=== PATIENT | male | born 1955 | race Two or more races ===

== ENCOUNTER 2017-10-05 08:52 | Inpatient (IN) | payer OTHER ==
[2017-10-05 09:43] VITALS: BMI 27.3
--- NOTE | 2017-10-05 11:58 | HP ---
COWS - Scale Resting Pulse: 1= [place] 81-100 Sweatin= Chills/Flushing Restless Observation: 1= Difficult to Sit Still Pupil Size: 0= Normal to Room Light Bone or Joint Aches: 2= Severe Diffuse Aches Runny Nose/ Eye Tearin= Runny Nose/Eyes GI Upset > 30mins: 2= Nausea/Diarrhea Tremor Observation: 2= Slight Tremor Visible Yawning Observation: 1= 1-2x During Session Anxiety or Irritability: 2=Irritable/Anxious Goose Flesh Skin: 0=Smooth Skin COWS Score: 14 Admission ROS S - HPI Chief Complaint: "They told me at the ER at [facility] that I should come for detox." Patient is here to Detox from Alcohol and Heroin. Allergies/Adverse Reactions: Allergies Allergy/AdvReac Type Severity Reaction Status Date / Time No Known Allergies Allergy Verified 10/05/17 09:48 History of Present Illness: Pt. is a 61 YO male here to Detox from Alcohol and Heroin. This is pt.'s first Detox admission. Exam Limitations: No Limitations - Ebola screening Have you traveled outside of the country in the last 21 days: No (N) Have you had contact with anyone from an Ebola affected area: No Have you been sick,other than usual withdrawal symptoms: No Do you have a fever: No - Review of Systems Constitutional: Diaphoresis, Malaise, Changes in sleep EENT: reports: No Symptoms Reported Respiratory: reports: No Symptoms reported Cardiac: reports: No Symptoms Reported GI: reports: Diarrhea, Nausea, Abdominal cramping : reports: No Symptoms Reported Musculoskeletal: reports: Back Pain Integumentary: reports: Rash (Bilateral Legs X approx. 6 months. Was evaluated at [facility] yesterday.) Neuro: reports: Tremors Endocrine: reports: No Symptoms Reported Hematology: reports: No Symptoms Reported Psychiatric: reports: Judgement Intact, Mood/Affect Appropiate, Orientated x3, Anxious Other Systems: Reviewed and Negative Patient History - Patient Medical History Hx Anemia: No Hx Asthma: No Hx Chronic Obstructive Pulmonary Disease (COPD): No Hx Cancer: No Hx Cardiac Disorders: No Hx Congestive Heart Failure: No Hx Hypertension: No Hx Hypercholesterolemia: No Hx Pacemaker: No HX Cerebrovascular Accident: No Hx Seizures: No Hx Dementia: No Hx Diabetes: No Hx Gastrointestinal Disorders: No Hx Liver Disease: No Hx Genitourinary Disorders: No Hx Sexually Transmitted Disorders: No Hx Renal Disease (ESRD): No Hx Thyroid Disease: No Hx Human Immunodeficiency Virus (HIV): No (Last Tested: 2016: NEGATIVE.) Hx Hepatitis C: No (Last Tested: 2017: NEGATIVE.) Hx Depression: No Hx Suicide Attempt: No (PATIENT DENIES CURRENT SI / HI.) Hx Bipolar Disorder: No Hx Schizophrenia: No Other Medical History: DENIES. - Patient Surgical History Past Surgical History: Yes Hx Neurologic Surgery: No Hx Cataract Extraction: No Hx Cardiac Surgery: No Hx Lung Surgery: No Hx Breast Surgery: No Hx Breast Biopsy: No Hx Abdominal Surgery: No Hx Appendectomy: No Hx Cholecystectomy: No Hx Genitourinary Surgery: No Hx Section: No Hx Orthopedic Surgery: No Other Surgical History: left inguinal hernia repair at age 5 Anesthesia Reaction: No - PPD History Previous Implant?: Yes Documented Results: Negative w/o proof Implanted On Prior R Admission?: No PPD to be Administered?: Yes - Reproductive History Patient is a Female of Child Bearing Age (11 -55 yrs old): No (PATIENT IS MALE.) - Smoking Cessation Smoking history: Current every day smoker Have you smoked in the past 12 months: Yes Aproximately how many cigarettes per day: 20 Cigars Per Day: 0 Hx Chewing Tobacco Use: No Initiated information on smoking cessation: Yes 'Breaking Loose' booklet given: 10/05/17 (GIVEN TO PATIENT.) - Substance & Tx. History Hx Alcohol Use: Yes Hx Substance Use: Yes Substance Use Type: Alcohol, Heroin Hx Substance Use Treatment: No - Substances Abused Heroin Route: Inhalation Frequency: Daily Amount used: 4-6 bags Age of first use: 19 Date of Last Use: 10/04/17 Alcohol-vodka/beer Route: Oral Frequency: Daily Amount used: 2 pts./1-6 pk. Age of first use: 13 Date of Last Use: 10/04/17 Family Disease History - Family Disease History Family History: Denies Admission Physical Exam BHS - Vital Signs Vital Signs: Vital Signs - 24 hr 10/05/17 09:41 Temperature 97.6 F Pulse Rate 87 Respiratory 19 Rate Blood Pressure 139/74 - Physical General Appearance: Yes: No Apparent Distress, Nourished, Appropriately Dressed , Anxious HEENTM: Yes: Hearing grossly Normal, Normocephalic, Normal Voice, JAVIER, Pharynx Normal Respiratory: Yes: Chest Non-Tender, Lungs Clear, No Respiratory Distress, No Accessory Muscle Use Neck: Yes: No masses,lesions,Nodules, Supple, Trachea in good position Breast: Yes: Breast Exam Deferred Cardiology: Yes: Regular Rhythm, Regular Rate, S1, S2 Abdominal: Yes: Normal Bowel Sounds, Non Tender, Flat, Soft Genitourinary: Yes: Within Normal Limits Back: Yes: Decreased Range of Motion Musculoskeletal: Yes: Gait Steady, Back pain Extremities: Yes: Normal Range of Motion, Non-Tender, Tremors Neurological: Yes: Fully Oriented, Alert, Normal Mood/Affect, Normal Response Integumentary: Yes: Normal Color, Dry, Warm, Other (Area of skin on medial aspect of bilateral lower legs appears dry and scaly. Pt reports that areas are pruritic. No bleeding or unusual discharge noted at either site. Patient reports taht he was prescribed Nystatin cream be [facility] ER medical provider yesterday, but that he has not yet picked it up because he came right to [facility] for Detox. This info. confirmed by Patient's pharmacy. Will order Nystatin Cream as part of of admission orders.) Lymphatic: Yes: Within Normal Limits - Diagnostic (1) Alcohol dependence with uncomplicated withdrawal Current Visit: Yes Status: Acute (2) Opioid dependence with withdrawal Current Visit: Yes Status: Acute (3) Nicotine dependence Current Visit: Yes Status: Chronic Qualifiers: Nicotine product type: cigarettes Substance use status: uncomplicated Qualified Code(s): F17.210 - Nicotine dependence, cigarettes, uncomplicated (4) Disorder of skin of lower extremity Current Visit: Yes Status: Acute Comment: Bilateral. Cleared for Admission S - Detox or Rehab [facility] Level of Care: Medically Managed Detox Regimen/Protocol: Methadone/Librium [facility] Breath Alcohol Content Breath Alcohol Content: 0 Urine Drug Screen - Results Drug Screen Negative: No Urine Drug Screen Results: THC-Marijuana, OPI-Opiates, BZO-Benzodiazepines
[2017-10-05] MEDS ORDERED: IBUPROFEN 400 MG TABLET (FP) PO PRN (12:30)
[2017-10-05] MEDS ORDERED: MENTHOL/PHENOL 1 EACH UD MM PRN (12:30)
[2017-10-05] MEDS ORDERED: MAG HYDROX/AL HYDROX/SIMETH 30 ML UNIT-DOSE CUP PO PRN (12:30)
[2017-10-05] MEDS ORDERED: ACETAMINOPHEN 325 MG TABLET (FP) PO PRN (12:30)
[2017-10-05] MEDS ORDERED: LOPERAMIDE HCL 2 MG CAPSULE PO PRN (12:30)
[2017-10-05] MEDS ORDERED: chlordiazePOXIDE HCL 25 MG CAPSULE PO PRN (12:30)
[2017-10-05] MEDS ORDERED: P-EPHED 60MG/TRIPROLIDI 2.5MG TABLET PO PRN (12:30)
[2017-10-05] MEDS ORDERED: MAGNESIUM CITRATE 300 ML BOTTLE PO PRN (12:30)
[2017-10-05] MEDS ORDERED: guaiFENesin/D-METHORPHAN HB 10 ML UNIT-DOSE CUPS PO PRN (12:30)
[2017-10-05] MEDS ORDERED: MAGNESIUM HYDROX 2400MG/30ML ORAL SUSPENSION 30 ML CUP PO PRN (12:30)
[2017-10-05] MEDS ORDERED: chlordiazePOXIDE HCL 25 MG CAPSULE PO ONE (12:47)
[2017-10-05] MEDS ORDERED: METHADONE HCL 10 MG TABLET (FOR DETOX USE ONLY) PO ONE ×2 (12:49→23:00)
[2017-10-05 14:39] LABS: HEMATOCRIT 41.9 % (35.4-49); HEMOGLOBIN 13.4 GM/dL (11.7-16.9); MCH 31.1 pg (25.7-33.7); MEAN PLT VOLUME 8.7 fl (7.5-11.1); PLATELET COUNT 228 K/MM3 (134-434); RBC 4.32 M/mm3 (4.00-5.60); WHITE BLOOD COUNT 5.1 K/mm3 (4.0-10.0)
[2017-10-05 14:51] LABS: CHLORIDE 102 mmol/L (98-107); POTASSIUM 4.7 mmol/L (3.5-5.1); SODIUM 139 mmol/L (136-145)
[2017-10-05 15:00] LABS: ALBUMIN 3.8 g/dl (3.4-5.0); ALK PHOS 120 U/L (45-117); ANION GAP 8 (8-16); BILIRUBIN,TOTAL 0.8 mg/dL (0.2-1.0); BLOOD UREA NITROGEN 16 mg/dL (7-18); CALCIUM 8.8 mg/dL (8.5-10.1); CO2 29 mmol/L (21-32); GLUCOSE,RANDOM 97 mg/dL (74-106); SGOT/AST 55 U/L (15-37); SGPT/ALT 41 U/L (12-78); TOT PROT 7.6 g/dl (6.4-8.2)
[2017-10-05] MEDS ORDERED: chlordiazePOXIDE HCL 25 MG CAPSULE ONE (15:51)
[2017-10-05] MEDS ORDERED: METHADONE HCL 10 MG TABLET (FOR DETOX USE ONLY) ONE (15:52)
[2017-10-05] MEDS: chlordiazePOXIDE HCL 25 MG CAPSULE PO SCH ×2 (17:25→22:11)
[2017-10-05 17:35] LABS: URINE APPEARANCE CLEAR; URINE BILIRUBIN NEGATIVE (NEGATIVE); URINE BLOOD NEGATIVE (NEGATIVE); URINE COLOR YELLOW; URINE GLUCOSE (UA) NEGATIVE (NEGATIVE); URINE KETONE NEGATIVE (NEGATIVE); URINE LEUK ESTERASE NEGATIVE (NEGATIVE); URINE NITRITE NEGATIVE (NEGATIVE); URINE PROTEIN NEGATIVE (NEGATIVE); URINE UROBILINOGEN NEGATIVE mg/dL (0.2-1.0)
[2017-10-05] MEDS: THIAMINE HCL 100 MG TABLET (FP) PO SCH (22:11)
[2017-10-05] MEDS: NYSTATIN 100,000 UNIT/GM TOPICAL CREAM 15 GM TUBE TP SCH (22:12)
[2017-10-06] MEDS: chlordiazePOXIDE HCL 25 MG CAPSULE PO SCH ×4 (06:33→22:32)
[2017-10-06] MEDS ORDERED: METHADONE HCL 10 MG TABLET (FOR DETOX USE ONLY) PO ONE (10:00)
--- NOTE | 2017-10-06 10:31 | PN ---
S CIWA - CIWA Score Nausea/Vomitin Muscle Tremors: 3 Anxiety: 3 Agitation: 2 Paroxysmal Sweats: 1-Minimal Palms Moist Orientation: 0-Oriented Tacttile Disturbances: 1-Very Mild Itch/Numbness Auditory Disturbances: 1-Very Mild Visual Disturbances: 0-None Headache: 2-Mild CIWA-Ar Total Score: 16 BHS COWS - Scale Resting Pulse: 1= [place] 81-100 Sweatin= Chills/Flushing Restless Observation: 3= Extraneous Movement Pupil Size: 1= Pupils >than Normal Bone or Joint Aches: 2= Severe Diffuse Aches Runny Nose/ Eye Tearin= Runny Nose/Eyes GI Upset > 30mins: 2= Nausea/Diarrhea Tremor Observation of Outstretched Hands: 2= Slight Tremor Visible Yawning Observation: 1= 1-2x During Session Anxiety or Irritability: 2=Irritable/Anxious Goose Flesh Skin: 0=Smooth Skin COWS Score: 17 S Progress Note (SOAP) Subjective: ALERT,IRRITABLE,ANXIOUS,INTERRUPTED SLEEP,TREMOR,PAIN IN THE BODY AND BACK Objective: 10/06/17 10:30 Vital Signs Temperature 100.8 F H 10/06/17 10:04 Pulse Rate 81 10/06/17 10:04 Respiratory Rate 18 10/06/17 10:04 Blood Pressure 137/78 10/06/17 10:04 O2 Sat by Pulse Oximetry (%) 10/06/17 10:30 EKG NSR,NORMAL ECG Laboratory Last Values WBC 5.1 K/mm3 (4.0-10.0) 10/05/17 12:00 RBC 4.32 M/mm3 (4.00-5.60) 10/05/17 12:00 Hgb 13.4 GM/dL (11.7-16.9) 10/05/17 12:00 Hct 41.9 % (35.4-49) 10/05/17 12:00 MCV 97.0 fl (80-96) H 10/05/17 12:00 MCH 31.1 pg (25.7-33.7) 10/05/17 12:00 MCHC 32.0 g/dl (32.0-35.9) 10/05/17 12:00 RDW 15.0 % (11.9-15.9) 10/05/17 12:00 Plt Count 228 K/MM3 (134-434) 10/05/17 12:00 MPV 8.7 fl (7.5-11.1) 10/05/17 12:00 Sodium 139 mmol/L (136-145) 10/05/17 12:00 Potassium 4.7 mmol/L (3.5-5.1) 10/05/17 12:00 Chloride 102 mmol/L (98-107) 10/05/17 12:00 Carbon Dioxide 29 mmol/L (21-32) 10/05/17 12:00 Anion Gap 8 (8-16) 10/05/17 12:00 BUN 16 mg/dL (7-18) 10/05/17 12:00 Creatinine 1.0 mg/dL (0.7-1.3) 10/05/17 12:00 Creat Clearance w eGFR > 60 (>60) 10/05/17 12:00 Random Glucose 97 mg/dL (74-106) 10/05/17 12:00 Calcium 8.8 mg/dL (8.5-10.1) 10/05/17 12:00 Total Bilirubin 0.8 mg/dL (0.2-1.0) 10/05/17 12:00 AST 55 U/L (15-37) H 10/05/17 12:00 ALT 41 U/L (12-78) 10/05/17 12:00 Alkaline Phosphatase 120 U/L (45-117) H 10/05/17 12:00 Total Protein 7.6 g/dl (6.4-8.2) 10/05/17 12:00 Albumin 3.8 g/dl (3.4-5.0) 10/05/17 12:00 Urine Color Yellow 10/05/17 15:00 Urine Appearance Clear 10/05/17 15:00 Urine pH 5.0 (5.0-8.0) 10/05/17 15:00 Ur Specific [place] 1.023 (1.001-1.035) 10/05/17 15:00 Urine Protein Negative (NEGATIVE) 10/05/17 15:00 Urine Glucose (UA) Negative (NEGATIVE) 10/05/17 15:00 Urine Ketones Negative (NEGATIVE) 10/05/17 15:00 Urine Blood Negative (NEGATIVE) 10/05/17 15:00 Urine Nitrite Negative (NEGATIVE) 10/05/17 15:00 Urine Bilirubin Negative (NEGATIVE) 10/05/17 15:00 Urine Urobilinogen Negative mg/dL (0.2-1.0) 10/05/17 15:00 Ur Leukocyte Esterase Negative (NEGATIVE) 10/05/17 15:00 Assessment: 10/06/17 10:31 WITHDRAWAL SYMPTOM Plan: CONTINUE DETOX
[2017-10-06] MEDS: NYSTATIN 100,000 UNIT/GM TOPICAL CREAM 15 GM TUBE TP SCH ×2 (10:42→22:33)
[2017-10-06] MEDS: PRENATAL VITAMINS W/ FOLIC ACID TABLET (FP) PO SCH (10:42)
[2017-10-06] MEDS: THIAMINE HCL 100 MG TABLET (FP) PO SCH (22:32)
[2017-10-07] MEDS: chlordiazePOXIDE HCL 25 MG CAPSULE PO SCH ×2 (06:00→10:40)
[2017-10-07] MEDS ORDERED: METHADONE HCL 5 MG TABLET (FOR DETOX USE ONLY) PO ONE (10:00)
[2017-10-07] MEDS: PRENATAL VITAMINS W/ FOLIC ACID TABLET (FP) PO SCH (10:39)
[2017-10-07] MEDS: NYSTATIN 100,000 UNIT/GM TOPICAL CREAM 15 GM TUBE TP SCH ×2 (10:40→22:55)
--- NOTE | 2017-10-07 10:48 | PN ---
[facility] CIWA - CIWA Score Nausea/Vomitin-No Nausea/No Vomiting Muscle Tremors: 3 Anxiety: 3 Agitation: 3 Paroxysmal Sweats: 3 Orientation: 0-Oriented Tacttile Disturbances: 1-Very Mild Itch/Numbness Auditory Disturbances: 0-None Visual Disturbances: 0-None Headache: 0-None Present CIWA-Ar Total Score: 13 BHS COWS - Scale Resting Pulse: 1= [place] 81-100 Sweatin= Chills/Flushing Restless Observation: 1= Difficult to Sit Still Pupil Size: 0= Normal to Room Light Bone or Joint Aches: 2= Severe Diffuse Aches Runny Nose/ Eye Tearin= Runny Nose/Eyes GI Upset > 30mins: 1= Stomach Cramp Tremor Observation of Outstretched Hands: 2= Slight Tremor Visible Yawning Observation: 1= 1-2x During Session Anxiety or Irritability: 2=Irritable/Anxious Goose Flesh Skin: 0=Smooth Skin COWS Score: 13 [facility] Progress Note (SOAP) Subjective: joint aches sweat tremor anxiety agitation irritable Objective: 10/07/17 10:47 Vital Signs Temperature 97.5 F L 10/07/17 10:08 Pulse Rate 92 H 10/07/17 10:08 Respiratory Rate 18 10/07/17 10:08 Blood Pressure 124/83 10/07/17 10:08 O2 Sat by Pulse Oximetry (%) Laboratory Last Values WBC 5.1 K/mm3 (4.0-10.0) 10/05/17 12:00 RBC 4.32 M/mm3 (4.00-5.60) 10/05/17 12:00 Hgb 13.4 GM/dL (11.7-16.9) 10/05/17 12:00 Hct 41.9 % (35.4-49) 10/05/17 12:00 MCV 97.0 fl (80-96) H 10/05/17 12:00 MCH 31.1 pg (25.7-33.7) 10/05/17 12:00 MCHC 32.0 g/dl (32.0-35.9) 10/05/17 12:00 RDW 15.0 % (11.9-15.9) 10/05/17 12:00 Plt Count 228 K/MM3 (134-434) 10/05/17 12:00 MPV 8.7 fl (7.5-11.1) 10/05/17 12:00 Sodium 139 mmol/L (136-145) 10/05/17 12:00 Potassium 4.7 mmol/L (3.5-5.1) 10/05/17 12:00 Chloride 102 mmol/L (98-107) 10/05/17 12:00 Carbon Dioxide 29 mmol/L (21-32) 10/05/17 12:00 Anion Gap 8 (8-16) 10/05/17 12:00 BUN 16 mg/dL (7-18) 10/05/17 12:00 Creatinine 1.0 mg/dL (0.7-1.3) 10/05/17 12:00 Creat Clearance w eGFR > 60 (>60) 10/05/17 12:00 Random Glucose 97 mg/dL (74-106) 10/05/17 12:00 Calcium 8.8 mg/dL (8.5-10.1) 10/05/17 12:00 Total Bilirubin 0.8 mg/dL (0.2-1.0) 10/05/17 12:00 AST 55 U/L (15-37) H 10/05/17 12:00 ALT 41 U/L (12-78) 10/05/17 12:00 Alkaline Phosphatase 120 U/L (45-117) H 10/05/17 12:00 Total Protein 7.6 g/dl (6.4-8.2) 10/05/17 12:00 Albumin 3.8 g/dl (3.4-5.0) 10/05/17 12:00 Urine Color Yellow 10/05/17 15:00 Urine Appearance Clear 10/05/17 15:00 Urine pH 5.0 (5.0-8.0) 10/05/17 15:00 Ur Specific [place] 1.023 (1.001-1.035) 10/05/17 15:00 Urine Protein Negative (NEGATIVE) 10/05/17 15:00 Urine Glucose (UA) Negative (NEGATIVE) 10/05/17 15:00 Urine Ketones Negative (NEGATIVE) 10/05/17 15:00 Urine Blood Negative (NEGATIVE) 10/05/17 15:00 Urine Nitrite Negative (NEGATIVE) 10/05/17 15:00 Urine Bilirubin Negative (NEGATIVE) 10/05/17 15:00 Urine Urobilinogen Negative mg/dL (0.2-1.0) 10/05/17 15:00 Ur Leukocyte Esterase Negative (NEGATIVE) 10/05/17 15:00 RPR Titer Nonreactive (NONREACTIVE) 10/05/17 12:00 lab noted Assessment: 10/07/17 10:47 withdrawal sx Plan: continue detox
--- NOTE | 2017-10-07 13:17 | EKG ---
Test Reason : Blood Pressure : / mmHG Vent. Rate : 068 BPM Atrial Rate : 068 BPM P-R Int : 172 ms QRS Dur : 094 ms QT Int : 424 ms P-R-T Axes : 062 042 033 degrees QTc Int : 450 ms NORMAL SINUS RHYTHM NORMAL ECG WHEN COMPARED WITH ECG OF 05-OCT-2017 15:45, NO SIGNIFICANT CHANGE WAS FOUND BASELINE ARTIFACT Confirmed by CRISTOFER MEIER MD ([id number]) on 10/07/2017 1:17:26 PM Referred By: Confirmed By:CRISTOFER MEIER MD
--- NOTE | 2017-10-07 13:23 | EKG ---
Test Reason : Blood Pressure : / mmHG Vent. Rate : 069 BPM Atrial Rate : 069 BPM P-R Int : 200 ms QRS Dur : 094 ms QT Int : 416 ms P-R-T Axes : 033 013 025 degrees QTc Int : 445 ms NORMAL SINUS RHYTHM ST ELEVATION, CONSIDER EARLY REPOLARIZATION, PERICARDITIS, OR INJURY ABNORMAL ECG NO PREVIOUS ECGS AVAILABLE BASELINE ARTIFACT Confirmed by CRISTOFER MEIER MD ([id number]) on 10/07/2017 1:22:46 PM Referred By: Confirmed By:CRISTOFER MEIER MD
[2017-10-07] MEDS: chlordiazePOXIDE 5 MG CAPSULE PO SCH ×2 (17:48→22:17)
[2017-10-07] MEDS: THIAMINE HCL 100 MG TABLET (FP) PO SCH (22:17)
[2017-10-08] MEDS: chlordiazePOXIDE 5 MG CAPSULE PO SCH ×2 (05:24→10:35)
[2017-10-08] MEDS ORDERED: METHADONE HCL 5 MG TABLET (FOR DETOX USE ONLY) PO ONE (10:00)
--- NOTE | 2017-10-08 10:01 | PN ---
BHS Progress Note (SOAP) Subjective: ALERT,IRRITABLE,ANXIOUS,INTERRUPTED SLEEP,TREMOR,PAIN IN THE BODY AND BACK Objective: 10/08/17 10:00 Vital Signs Temperature 97.7 F 10/08/17 06:13 Pulse Rate 66 10/08/17 06:13 Respiratory Rate 16 10/08/17 06:13 Blood Pressure 138/84 10/08/17 06:13 O2 Sat by Pulse Oximetry (%) Assessment: 10/08/17 10:00 WITHDRAWAL SYMPTOM Plan: CONTINUE DETOX
[2017-10-08] MEDS: PRENATAL VITAMINS W/ FOLIC ACID TABLET (FP) PO SCH (10:35)
[2017-10-08] MEDS: NYSTATIN 100,000 UNIT/GM TOPICAL CREAM 15 GM TUBE TP SCH ×2 (10:35→22:02)
[2017-10-08] MEDS: chlordiazePOXIDE HCL 10 MG CAPSULE PO SCH ×2 (17:29→22:02)
[2017-10-08] MEDS: THIAMINE HCL 100 MG TABLET (FP) PO SCH (22:02)
[2017-10-09] MEDS: chlordiazePOXIDE HCL 10 MG CAPSULE PO SCH ×2 (05:58→11:09)
[2017-10-09] MEDS ORDERED: METHADONE HCL 10 MG TABLET (FOR DETOX USE ONLY) PO ONE (10:00)
--- NOTE | 2017-10-09 10:29 | PN ---
S Progress Note (SOAP) Subjective: ALERT,IRRITABLE,ANXIOUS,INTERRUPTED SLEEP Objective: 10/09/17 10:29 Vital Signs Temperature 97.9 F 10/09/17 06:00 Pulse Rate 73 10/09/17 06:00 Respiratory Rate 18 10/09/17 06:00 Blood Pressure 143/85 10/09/17 06:00 O2 Sat by Pulse Oximetry (%) Assessment: 10/09/17 10:29 WITHDRAWAL SYMPTOM Plan: CONTINUE DETOX,DISCHARGE IN AM
[2017-10-09] MEDS: PRENATAL VITAMINS W/ FOLIC ACID TABLET (FP) PO SCH (11:09)
[2017-10-09] MEDS: NYSTATIN 100,000 UNIT/GM TOPICAL CREAM 15 GM TUBE TP SCH ×2 (11:10→22:09)
[2017-10-09] MEDS: THIAMINE HCL 100 MG TABLET (FP) PO SCH (22:08)
[2017-10-10] MEDS ORDERED: METHADONE HCL 5 MG TABLET (FOR DETOX USE ONLY) PO ONE (06:00)
--- NOTE | 2017-10-10 08:56 | PN ---
S Progress Note (SOAP) Subjective: ALERT,IRRITABLE,ANXIOUS,INTERRUPTED SLEEP Objective: 10/10/17 08:55 Vital Signs Temperature 96.6 F L 10/10/17 06:15 Pulse Rate 68 10/10/17 06:15 Respiratory Rate 16 10/10/17 06:15 Blood Pressure 136/84 10/10/17 06:15 O2 Sat by Pulse Oximetry (%) Assessment: 10/10/17 08:55 WITHDRAWAL SYMPTOM Plan: CONTINUE DETOX
[2017-10-10] MEDS: NYSTATIN 100,000 UNIT/GM TOPICAL CREAM 15 GM TUBE TP SCH (10:52)
[2017-10-10] MEDS: PRENATAL VITAMINS W/ FOLIC ACID TABLET (FP) PO SCH (10:52)
--- NOTE | 2017-10-10 12:54 | DS ---
[facility] Detox Discharge Summary Admission Date: 10/05/17 Discharge Date: 10/10/17 - History Additional Comments: follow up with after care program as arrangement Pertinent Past History: nicotine dependence - Physical Exam Results Vital Signs: Vital Signs Temperature 98.2 F 10/10/17 09:58 Pulse Rate 86 10/10/17 09:58 Respiratory Rate 18 10/10/17 09:58 Blood Pressure 140/80 10/10/17 09:58 O2 Sat by Pulse Oximetry (%) Pertinent Admission Physical Exam Findings: withdrawal symptom and finding - Treatment Hospital Course: Detox Protocol Followed, Detoxed Safely, Responded well, Discharged Condition Good, Rehab Referral Accepted Patient has Accepted a Rehab Referral to: [facility] - Medication Discharge Medications: Ambulatory Orders NK [No Known Home Medication] 10/05/17 - Diagnosis (1) Opioid dependence with withdrawal Current Visit: Yes Status: Acute (2) Alcohol dependence with uncomplicated withdrawal Current Visit: Yes Status: Acute (3) Nicotine dependence Current Visit: Yes Status: Chronic Qualifiers: Nicotine product type: cigarettes Substance use status: uncomplicated Qualified Code(s): F17.210 - Nicotine dependence, cigarettes, uncomplicated - AMA Did Patient Leave Against Medical Advice: No
[2017-10-10 15:10] VITALS: BP 128/74; PULSE 83; TEMP 97.9
== END 2017-10-10 15:10 | disposition other institution (70) | DRG 773 ==
LOC: YASAS 08:52 → Y6N 12:13
PROVIDERS: ADMIT Internal Medicine; ATTEND Internal Medicine
PROC: HZ2ZZZZ Detoxification Services for Substance Abuse Treatment (ICD-10-PCS; principal; 2017-10-05)
DX: F11.23 Opioid dependence with withdrawal (principal); F10.230 Alcohol dependence with withdrawal, uncomplicated; F17.210 Nicotine dependence, cigarettes, uncomplicated; L98.8 Other specified disorders of the skin and subcutaneous tissue
CPT/HCPCS: 36415; 80053; 81003; 85027; 86593; 93005; 93010

== ENCOUNTER 2017-10-10 15:16 | Inpatient (IN) | payer OTHER ==
[2017-10-10] MEDS ORDERED: hydrOXYzine PAMOATE 50 MG CAPSULE (FP) PO PRN (16:23)
[2017-10-10] MEDS ORDERED: P-EPHED 60MG/TRIPROLIDI 2.5MG TABLET PO PRN (16:23)
[2017-10-10] MEDS ORDERED: guaiFENesin/D-METHORPHAN HB 10 ML UNIT-DOSE CUPS PO PRN (16:23)
[2017-10-10] MEDS ORDERED: MENTHOL/PHENOL 1 EACH UD MM PRN (16:23)
[2017-10-10] MEDS ORDERED: MAG HYDROX/AL HYDROX/SIMETH 30 ML UNIT-DOSE CUP PO PRN (16:23)
[2017-10-10] MEDS ORDERED: LOPERAMIDE HCL 2 MG CAPSULE PO PRN (16:23)
[2017-10-10] MEDS ORDERED: ACETAMINOPHEN 325 MG TABLET (FP) PO PRN (16:23)
[2017-10-10] MEDS ORDERED: IBUPROFEN 400 MG TABLET (FP) PO PRN (16:23)
[2017-10-10] MEDS ORDERED: MAGNESIUM CITRATE 300 ML BOTTLE PO PRN (16:23)
[2017-10-10] MEDS ORDERED: MAGNESIUM HYDROX 2400MG/30ML ORAL SUSPENSION 30 ML CUP PO PRN (16:23)
--- NOTE | 2017-10-10 16:23 | HP ---
[facility] Rehab Assess/Revision - Admission History Admitted to Rehab from: [facility] [place] Date of Admission to Rehab: 10/10/17 - Findings Detox History & Physical reviewed: Yes Concur with findings: Yes Comments/Additional Findings: for rehab as protocol Inpatient Rehab Admission - Initial Determination Are CD services needed?: Yes Free of communicable disease: Yes Not in need of hospitalization: Yes - Rehab Admission Criteria Previous failed treatment: Yes Poor recovery environment: Yes Comorbidities: Yes Lacks judgement: No Patient is meeting Inpatient Rehab admission criteria:: Yes
[2017-10-10] MEDS: THIAMINE HCL 100 MG TABLET (FP) PO SCH (21:35)
[2017-10-10] MEDS: AMMONIUM LACTATE 12% LOTION 225 GM BOTTLE TP SCH (21:36)
[2017-10-11] MEDS: AMMONIUM LACTATE 12% LOTION 225 GM BOTTLE TP SCH ×2 (10:18→21:39)
[2017-10-11] MEDS: PRENATAL VITAMINS W/ FOLIC ACID TABLET (FP) PO SCH (10:18)
--- NOTE | 2017-10-11 15:19 | HP ---
Psychiatrist Admission - Data Date of interview: 10/11/17 Admission source: 6N Identifying data: This is the first 5N inpatient rehabilitation admission for this 61 year old single unemployed homeless and no any kind of social support. Medical History: Left inguinal hernia repair and rash, redness and itching to bilateral lower extremities. Smokes cigarettes 1 PPD. Psychiatric History: Never met with a psychiatrict but reports has been feeling depressed and anxious for the past 6 months, hopeless and and unable to sleep. Physical/Sexual Abuse/Trauma History: Denies history of sexual, physical and verbal abuse. Vital Signs: Vital Signs - 24 hr 10/11/17 10/11/17 10/11/17 00:30 03:30 06:58 Temperature 97.8 F Pulse Rate 74 Respiratory 18 18 16 Rate Blood Pressure 118/85 Allergies/Adverse Reactions: Allergies Allergy/AdvReac Type Severity Reaction Status Date / Time No Known Allergies Allergy Verified 10/05/17 09:48 Date of last physical exam: 10/05/17 Concur with the findings of this exam: Yes - Substance Abuse/Tx History Hx Alcohol Use: Yes (daily 3-4 pints vodka daily) Hx Substance Use: Yes Substance Use Type: Heroin (6-12 bags daily) Hx Substance Use Treatment: Yes (this is the first rehablit inpatient treatment. ) Mental Status Exam - Mental Status Exam Alert and Oriented to: Time, Place, Person Cognitive Function: Grossly Intact Patient Appearance: Well Groomed Mood: Depressed, Anxious Affect: Mood Congruent Patient Behavior: Appropriate, Cooperative Speech Pattern: Clear, Appropriate Voice Loudness: Normal Thought Process: Intact, Goal Oriented Thought Disorder: Not Present Hallucinations: Denies Suicidal Ideation: Denies Homicidal Ideation: Denies Insight/Judgement: Fair Sleep: Poorly, Difficulty falling asleep Appetite: Fair Muscle strength/Tone: Normal Gait/Station: Normal Psychiatric Findings - Problem List ([place] 1, 2,3) (1) Opioid dependence Current Visit: Yes Status: Acute (2) Alcohol dependence Current Visit: Yes Status: Acute (3) Alcohol-induced anxiety disorder Current Visit: Yes Status: Acute (4) Alcohol induced sleep disorders Current Visit: Yes Status: Acute (5) Nicotine dependence Current Visit: No Status: Chronic Qualifiers: - Initial Treatment Plan Initial Treatment Plan: Discussed indication and properties of Remeron with the patient he agreed to start, will add 15 mg po hs, contineu to monitor.
[2017-10-11] MEDS: THIAMINE HCL 100 MG TABLET (FP) PO SCH (21:40)
[2017-10-11] MEDS: MIRTAZAPINE 15 MG TABLET (FP) PO SCH (22:30)
[2017-10-12] MEDS: AMMONIUM LACTATE 12% LOTION 225 GM BOTTLE TP SCH ×2 (10:14→21:26)
[2017-10-12] MEDS: PRENATAL VITAMINS W/ FOLIC ACID TABLET (FP) PO SCH (10:14)
[2017-10-12] MEDS: MIRTAZAPINE 15 MG TABLET (FP) PO SCH (21:26)
[2017-10-12] MEDS: THIAMINE HCL 100 MG TABLET (FP) PO SCH (21:26)
[2017-10-13] MEDS: AMMONIUM LACTATE 12% LOTION 225 GM BOTTLE TP SCH ×2 (10:20→21:53)
[2017-10-13] MEDS: PRENATAL VITAMINS W/ FOLIC ACID TABLET (FP) PO SCH (10:20)
[2017-10-13] MEDS: THIAMINE HCL 100 MG TABLET (FP) PO SCH (21:25)
[2017-10-13] MEDS: MIRTAZAPINE 15 MG TABLET (FP) PO SCH (21:25)
[2017-10-14] MEDS: PRENATAL VITAMINS W/ FOLIC ACID TABLET (FP) PO SCH (10:05)
[2017-10-14] MEDS: AMMONIUM LACTATE 12% LOTION 225 GM BOTTLE TP SCH ×2 (10:06→21:34)
[2017-10-14] MEDS: THIAMINE HCL 100 MG TABLET (FP) PO SCH (21:34)
[2017-10-14] MEDS: MIRTAZAPINE 15 MG TABLET (FP) PO SCH (21:34)
[2017-10-15] MEDS: PRENATAL VITAMINS W/ FOLIC ACID TABLET (FP) PO SCH (10:37)
[2017-10-15] MEDS: AMMONIUM LACTATE 12% LOTION 225 GM BOTTLE TP SCH ×2 (10:38→21:30)
[2017-10-15] MEDS: THIAMINE HCL 100 MG TABLET (FP) PO SCH (21:30)
[2017-10-15] MEDS: MIRTAZAPINE 15 MG TABLET (FP) PO SCH (21:30)
[2017-10-16] MEDS: PRENATAL VITAMINS W/ FOLIC ACID TABLET (FP) PO SCH (10:07)
[2017-10-16] MEDS: AMMONIUM LACTATE 12% LOTION 225 GM BOTTLE TP SCH ×2 (10:07→21:26)
--- NOTE | 2017-10-16 10:15 | PN ---
[facility] Progress Note (SOAP) Subjective: C/O DRY SKIN, ITCHY NOT HELPED BY LACHYDRIN Objective: 10/16/17 10:14 Vital Signs - 24 hr 10/16/17 10/16/17 10/16/17 00:30 03:30 06:57 Temperature 97.9 F Pulse Rate 74 Respiratory 18 18 18 Rate Blood Pressure 124/81 LABS REVIWEED Assessment: 10/16/17 10:14 ECZEMA/DERMATITIS - START TRIMACINIOLNE TO RASH AREA, F/U pcp WHEN DISCHARGED.
[2017-10-16] MEDS: TRIAMCINOLONE ACET 0.025% OINTMENT 15 GM TUBE TP SCH ×2 (12:50→21:26)
[2017-10-16] MEDS: THIAMINE HCL 100 MG TABLET (FP) PO SCH (21:25)
[2017-10-16] MEDS: MIRTAZAPINE 15 MG TABLET (FP) PO SCH (21:25)
[2017-10-17] MEDS: AMMONIUM LACTATE 12% LOTION 225 GM BOTTLE TP SCH ×2 (11:00→21:30)
[2017-10-17] MEDS: TRIAMCINOLONE ACET 0.025% OINTMENT 15 GM TUBE TP SCH ×2 (11:00→21:30)
[2017-10-17] MEDS: PRENATAL VITAMINS W/ FOLIC ACID TABLET (FP) PO SCH (11:00)
[2017-10-17] MEDS: THIAMINE HCL 100 MG TABLET (FP) PO SCH (21:29)
[2017-10-17] MEDS: MIRTAZAPINE 15 MG TABLET (FP) PO SCH (21:29)
[2017-10-18] MEDS: AMMONIUM LACTATE 12% LOTION 225 GM BOTTLE TP SCH ×2 (10:29→21:44)
[2017-10-18] MEDS: TRIAMCINOLONE ACET 0.025% OINTMENT 15 GM TUBE TP SCH ×2 (10:29→21:45)
[2017-10-18] MEDS: PRENATAL VITAMINS W/ FOLIC ACID TABLET (FP) PO SCH (10:29)
[2017-10-18] MEDS: MIRTAZAPINE 15 MG TABLET (FP) PO SCH (21:44)
[2017-10-18] MEDS: THIAMINE HCL 100 MG TABLET (FP) PO SCH (21:44)
[2017-10-19] MEDS: PRENATAL VITAMINS W/ FOLIC ACID TABLET (FP) PO SCH (10:07)
[2017-10-19] MEDS: AMMONIUM LACTATE 12% LOTION 225 GM BOTTLE TP SCH ×2 (10:08→21:26)
[2017-10-19] MEDS: TRIAMCINOLONE ACET 0.025% OINTMENT 15 GM TUBE TP SCH ×3 (10:14→21:27)
[2017-10-19] MEDS: MIRTAZAPINE 15 MG TABLET (FP) PO SCH (21:26)
[2017-10-19] MEDS: THIAMINE HCL 100 MG TABLET (FP) PO SCH (21:26)
[2017-10-20] MEDS: TRIAMCINOLONE ACET 0.025% OINTMENT 15 GM TUBE TP SCH ×2 (10:23→21:21)
[2017-10-20] MEDS: PRENATAL VITAMINS W/ FOLIC ACID TABLET (FP) PO SCH (10:23)
[2017-10-20] MEDS: AMMONIUM LACTATE 12% LOTION 225 GM BOTTLE TP SCH ×2 (10:23→21:21)
[2017-10-20] MEDS: MIRTAZAPINE 15 MG TABLET (FP) PO SCH (21:21)
[2017-10-20] MEDS: THIAMINE HCL 100 MG TABLET (FP) PO SCH (21:21)
[2017-10-21] MEDS: TRIAMCINOLONE ACET 0.025% OINTMENT 15 GM TUBE TP SCH ×2 (10:29→21:33)
[2017-10-21] MEDS: AMMONIUM LACTATE 12% LOTION 225 GM BOTTLE TP SCH ×2 (10:29→21:33)
[2017-10-21] MEDS: PRENATAL VITAMINS W/ FOLIC ACID TABLET (FP) PO SCH (10:29)
[2017-10-21] MEDS: MIRTAZAPINE 15 MG TABLET (FP) PO SCH (21:33)
[2017-10-21] MEDS: THIAMINE HCL 100 MG TABLET (FP) PO SCH (21:33)
[2017-10-22] MEDS: PRENATAL VITAMINS W/ FOLIC ACID TABLET (FP) PO SCH (10:10)
[2017-10-22] MEDS: AMMONIUM LACTATE 12% LOTION 225 GM BOTTLE TP SCH ×2 (10:10→21:27)
[2017-10-22] MEDS: TRIAMCINOLONE ACET 0.025% OINTMENT 15 GM TUBE TP SCH ×2 (10:10→21:28)
[2017-10-22] MEDS: MIRTAZAPINE 15 MG TABLET (FP) PO SCH (21:27)
[2017-10-22] MEDS: THIAMINE HCL 100 MG TABLET (FP) PO SCH (21:27)
[2017-10-23] MEDS: AMMONIUM LACTATE 12% LOTION 225 GM BOTTLE TP SCH ×2 (10:39→21:29)
[2017-10-23] MEDS: PRENATAL VITAMINS W/ FOLIC ACID TABLET (FP) PO SCH (10:39)
[2017-10-23] MEDS: TRIAMCINOLONE ACET 0.025% OINTMENT 15 GM TUBE TP SCH ×2 (10:39→21:29)
--- NOTE | 2017-10-23 14:38 | PN ---
Psychiatric Progress Note Vital Signs: Vital Signs Period Temp Pulse Resp BP Sys/Tran Pulse Ox Last 24 Hr 98.0 F 79 18-18 113/80 Date of Session: 10/23/17 Chief Complaint:: "insomnia" HPI: Patient is addressing alcohol, opioid, nicotine dependence comorbid alcohol induced sleep and mood disorder. ROS: WNL Current Medications: Active Medications Generic Name Dose Route Start Last Admin Trade Name Freq PRN Reason Stop Dose Admin Acetaminophen 650 mg 10/10/17 16:23 Tylenol - PO Q4H PRN FEVER Al Hydroxide/Mg Hydroxide 30 ml 10/10/17 16:23 Mylanta Oral Suspension - PO Q6H PRN DYSPEPSIA Eucalyptus/Menthol/Phenol/Sorbitol 1 each 10/10/17 16:23 Cepastat Lozenge - MM Q4H PRN SORE THROAT Guaifenesin 10 ml 10/10/17 16:23 Robitussin Dm - PO Q6H PRN COUGH Hydroxyzine Pamoate 50 mg 10/10/17 16:23 10/10/17 21:37 Vistaril - PO 50 mg Q4H PRN Administration AGITATION Ibuprofen 400 mg 10/10/17 16:23 Motrin - PO Q6H PRN Pain Level 4-6 Lactic Acid 1 applic 10/10/17 22:00 10/23/17 10:39 Lac-Hydrin 12 TP Not Given BID WILNER Loperamide HCl 4 mg 10/10/17 16:23 Imodium - PO Q6H PRN DIARRHEA Magnesium Citrate 300 ml 10/10/17 16:23 Citroma - PO Q48H PRN CONSTIPATION Magnesium Hydroxide 30 ml 10/10/17 16:23 Milk Of Magnesia - PO DAILY PRN CONSTIPATION Mirtazapine 15 mg 10/11/17 22:00 10/22/17 21:27 Remeron - PO 15 mg HS WILNER Administration Multivit/Folic Acid/Iron 1 tab 10/11/17 10:00 10/23/17 10:39 Vitamins (Sjr) - PO 1 tab DAILY WILNER Administration Pseudoephedrine/Triprolidine 1 combo 10/10/17 16:23 Actifed - PO TID PRN NASAL CONGESTION Thiamine HCl 100 mg 10/10/17 22:00 10/22/17 21:27 Vitamin B1 - PO 100 mg HS WILNER Administration Triamcinolone Acetonide 1 applic 10/16/17 10:15 10/23/17 10:39 Aristocort 0.025% Ointment - TP Not Given BID WILNER Current Side Effect: No Lab tests ordered: No Lab tests reviewed: Yes Provider note:: Patient generally adjusted well to the unit , he attends and parcticipates in group discussion, he reports he feels better, less anxious and mood is brighter, but continues to c/o insomnia. Reviewed indications and properties of Belsomra with the patient , medication recommended, patient agreed to start. Total face to face time:: 30 Mental Status Exam - Mental Status Exam Alert and Oriented to: Time, Place, Person Cognitive Function: Good Patient Appearance: Well Groomed Mood: Hopeful Affect: Appropriate, Mood Congruent Patient Behavior: Appropriate, Cooperative Speech Pattern: Clear, Appropriate Voice Loudness: Normal Thought Process: Intact, Goal Oriented Thought Disorder: Not Present Hallucinations: Denies Suicidal Ideation: Denies Homicidal Ideation: Denies Insight/Judgement: Fair Sleep: Poorly, Difficulty falling asleep Appetite: Fair Muscle strength/Tone: Normal Gait/Station: Normal Psychiatric Treatment Plan - Problem List (1) Opioid dependence Current Visit: Yes (2) Alcohol dependence Current Visit: Yes (3) Alcohol-induced anxiety disorder Current Visit: Yes (4) Alcohol induced sleep disorders Current Visit: Yes (5) Nicotine dependence Current Visit: No Qualifiers:
[2017-10-23] MEDS: MIRTAZAPINE 15 MG TABLET (FP) PO SCH (21:28)
[2017-10-23] MEDS: THIAMINE HCL 100 MG TABLET (FP) PO SCH (21:28)
[2017-10-23] MEDS: SUVOREXANT 10 MG TABLET PO SCH (21:28)
[2017-10-24] MEDS: PRENATAL VITAMINS W/ FOLIC ACID TABLET (FP) PO SCH (10:20)
[2017-10-24] MEDS: TRIAMCINOLONE ACET 0.025% OINTMENT 15 GM TUBE TP SCH ×2 (10:21→21:47)
[2017-10-24] MEDS: AMMONIUM LACTATE 12% LOTION 225 GM BOTTLE TP SCH ×2 (10:21→21:48)
[2017-10-24] MEDS: MIRTAZAPINE 15 MG TABLET (FP) PO SCH (21:48)
[2017-10-24] MEDS: SUVOREXANT 10 MG TABLET PO SCH (21:48)
[2017-10-24] MEDS: THIAMINE HCL 100 MG TABLET (FP) PO SCH (21:48)
[2017-10-25] MEDS: PRENATAL VITAMINS W/ FOLIC ACID TABLET (FP) PO SCH (10:31)
[2017-10-25] MEDS: AMMONIUM LACTATE 12% LOTION 225 GM BOTTLE TP SCH ×2 (10:32→21:34)
[2017-10-25] MEDS: TRIAMCINOLONE ACET 0.025% OINTMENT 15 GM TUBE TP SCH ×2 (10:32→21:35)
[2017-10-25] MEDS: THIAMINE HCL 100 MG TABLET (FP) PO SCH (21:33)
[2017-10-25] MEDS: MIRTAZAPINE 15 MG TABLET (FP) PO SCH (21:33)
[2017-10-25] MEDS: SUVOREXANT 10 MG TABLET PO SCH (21:34)
[2017-10-26] MEDS: PRENATAL VITAMINS W/ FOLIC ACID TABLET (FP) PO SCH (10:39)
[2017-10-26] MEDS: TRIAMCINOLONE ACET 0.025% OINTMENT 15 GM TUBE TP SCH ×2 (10:39→21:22)
[2017-10-26] MEDS: AMMONIUM LACTATE 12% LOTION 225 GM BOTTLE TP SCH ×2 (10:40→21:22)
[2017-10-26] MEDS: MIRTAZAPINE 15 MG TABLET (FP) PO SCH (21:22)
[2017-10-26] MEDS: THIAMINE HCL 100 MG TABLET (FP) PO SCH (21:22)
[2017-10-26] MEDS: SUVOREXANT 10 MG TABLET PO SCH (21:22)
[2017-10-27] MEDS: PRENATAL VITAMINS W/ FOLIC ACID TABLET (FP) PO SCH (10:00)
[2017-10-27] MEDS: TRIAMCINOLONE ACET 0.025% OINTMENT 15 GM TUBE TP SCH ×2 (10:00→21:25)
[2017-10-27] MEDS: AMMONIUM LACTATE 12% LOTION 225 GM BOTTLE TP SCH ×2 (10:01→21:25)
[2017-10-27] MEDS: THIAMINE HCL 100 MG TABLET (FP) PO SCH (21:24)
[2017-10-27] MEDS: SUVOREXANT 10 MG TABLET PO SCH (21:24)
[2017-10-27] MEDS: MIRTAZAPINE 15 MG TABLET (FP) PO SCH (21:24)
[2017-10-28] MEDS: AMMONIUM LACTATE 12% LOTION 225 GM BOTTLE TP SCH ×2 (10:14→21:25)
[2017-10-28] MEDS: PRENATAL VITAMINS W/ FOLIC ACID TABLET (FP) PO SCH (10:14)
[2017-10-28] MEDS: TRIAMCINOLONE ACET 0.025% OINTMENT 15 GM TUBE TP SCH ×2 (10:14→21:24)
[2017-10-28] MEDS: MIRTAZAPINE 15 MG TABLET (FP) PO SCH (21:24)
[2017-10-28] MEDS: SUVOREXANT 10 MG TABLET PO SCH (21:24)
[2017-10-28] MEDS: THIAMINE HCL 100 MG TABLET (FP) PO SCH (21:24)
[2017-10-29] MEDS ORDERED: PT OWN MED DRAWER 7, Y5N ONE (08:31)
[2017-10-29] MEDS: AMMONIUM LACTATE 12% LOTION 225 GM BOTTLE TP SCH ×2 (10:07→21:25)
[2017-10-29] MEDS: PRENATAL VITAMINS W/ FOLIC ACID TABLET (FP) PO SCH (10:07)
[2017-10-29] MEDS: TRIAMCINOLONE ACET 0.025% OINTMENT 15 GM TUBE TP SCH ×2 (10:07→21:25)
[2017-10-29] MEDS: MIRTAZAPINE 15 MG TABLET (FP) PO SCH (21:24)
[2017-10-29] MEDS: THIAMINE HCL 100 MG TABLET (FP) PO SCH (21:24)
[2017-10-29] MEDS: SUVOREXANT 10 MG TABLET PO SCH (21:24)
[2017-10-30] MEDS: PRENATAL VITAMINS W/ FOLIC ACID TABLET (FP) PO SCH (10:11)
[2017-10-30] MEDS: TRIAMCINOLONE ACET 0.025% OINTMENT 15 GM TUBE TP SCH ×2 (10:12→21:39)
[2017-10-30] MEDS: AMMONIUM LACTATE 12% LOTION 225 GM BOTTLE TP SCH ×2 (10:12→21:38)
[2017-10-30] MEDS: MIRTAZAPINE 15 MG TABLET (FP) PO SCH (21:38)
[2017-10-30] MEDS: THIAMINE HCL 100 MG TABLET (FP) PO SCH (21:38)
[2017-10-30] MEDS: QUEtiapine FUMARATE 25 MG TABLET (FP) PO SCH (21:38)
[2017-10-31] MEDS: PRENATAL VITAMINS W/ FOLIC ACID TABLET (FP) PO SCH (10:19)
[2017-10-31] MEDS: AMMONIUM LACTATE 12% LOTION 225 GM BOTTLE TP SCH ×2 (10:20→21:26)
[2017-10-31] MEDS: TRIAMCINOLONE ACET 0.025% OINTMENT 15 GM TUBE TP SCH ×2 (10:20→21:26)
[2017-10-31] MEDS: QUEtiapine FUMARATE 25 MG TABLET (FP) PO SCH (21:25)
[2017-10-31] MEDS: THIAMINE HCL 100 MG TABLET (FP) PO SCH (21:26)
[2017-10-31] MEDS: MIRTAZAPINE 15 MG TABLET (FP) PO SCH (21:26)
[2017-11-01] MEDS: TRIAMCINOLONE ACET 0.025% OINTMENT 15 GM TUBE TP SCH ×2 (10:15→21:32)
[2017-11-01] MEDS: AMMONIUM LACTATE 12% LOTION 225 GM BOTTLE TP SCH ×2 (10:15→21:32)
[2017-11-01] MEDS: PRENATAL VITAMINS W/ FOLIC ACID TABLET (FP) PO SCH (10:15)
[2017-11-01] MEDS: QUEtiapine FUMARATE 25 MG TABLET (FP) PO SCH (21:31)
[2017-11-01] MEDS: MIRTAZAPINE 15 MG TABLET (FP) PO SCH (21:31)
[2017-11-01] MEDS: THIAMINE HCL 100 MG TABLET (FP) PO SCH (21:31)
[2017-11-02] MEDS: AMMONIUM LACTATE 12% LOTION 225 GM BOTTLE TP SCH ×2 (10:12→21:36)
[2017-11-02] MEDS: PRENATAL VITAMINS W/ FOLIC ACID TABLET (FP) PO SCH (10:12)
[2017-11-02] MEDS: TRIAMCINOLONE ACET 0.025% OINTMENT 15 GM TUBE TP SCH ×2 (10:13→21:36)
[2017-11-02] MEDS: THIAMINE HCL 100 MG TABLET (FP) PO SCH (21:36)
[2017-11-02] MEDS: QUEtiapine FUMARATE 25 MG TABLET (FP) PO SCH (21:36)
[2017-11-02] MEDS: MIRTAZAPINE 15 MG TABLET (FP) PO SCH (21:36)
[2017-11-03] MEDS: PRENATAL VITAMINS W/ FOLIC ACID TABLET (FP) PO SCH (10:11)
[2017-11-03] MEDS: TRIAMCINOLONE ACET 0.025% OINTMENT 15 GM TUBE TP SCH ×2 (10:11→21:28)
[2017-11-03] MEDS: AMMONIUM LACTATE 12% LOTION 225 GM BOTTLE TP SCH ×2 (10:12→21:28)
[2017-11-03] MEDS: MIRTAZAPINE 15 MG TABLET (FP) PO SCH (21:27)
[2017-11-03] MEDS: QUEtiapine FUMARATE 25 MG TABLET (FP) PO SCH (21:27)
[2017-11-03] MEDS: THIAMINE HCL 100 MG TABLET (FP) PO SCH (21:27)
[2017-11-04] MEDS: PRENATAL VITAMINS W/ FOLIC ACID TABLET (FP) PO SCH (10:32)
[2017-11-04] MEDS: AMMONIUM LACTATE 12% LOTION 225 GM BOTTLE TP SCH ×2 (10:33→21:31)
[2017-11-04] MEDS: TRIAMCINOLONE ACET 0.025% OINTMENT 15 GM TUBE TP SCH ×2 (10:33→21:31)
[2017-11-04] MEDS: THIAMINE HCL 100 MG TABLET (FP) PO SCH (21:31)
[2017-11-04] MEDS: MIRTAZAPINE 15 MG TABLET (FP) PO SCH (21:31)
[2017-11-04] MEDS: QUEtiapine FUMARATE 25 MG TABLET (FP) PO SCH (21:31)
[2017-11-05] MEDS: TRIAMCINOLONE ACET 0.025% OINTMENT 15 GM TUBE TP SCH ×2 (10:22→21:28)
[2017-11-05] MEDS: AMMONIUM LACTATE 12% LOTION 225 GM BOTTLE TP SCH ×2 (10:22→21:28)
[2017-11-05] MEDS: PRENATAL VITAMINS W/ FOLIC ACID TABLET (FP) PO SCH (10:22)
--- NOTE | 2017-11-05 14:11 | PN ---
Psychiatric Progress Note Vital Signs: Vital Signs Period Temp Pulse Resp BP Sys/Tran Pulse Ox Last 24 Hr 97.8 F-97.8 F 77-83 18-18 122/74 Date of Session: 11/05/17 Chief Complaint:: insomnia HPI: Patient is addressing alcohol, opioid, nicotine dependence comorbid alcohol induced sleep and mood disorder. ROS: wnl Current Medications: Active Medications Generic Name Dose Route Start Last Admin Trade Name Freq PRN Reason Stop Dose Admin Acetaminophen 650 mg 10/10/17 16:23 Tylenol - PO Q4H PRN FEVER Al Hydroxide/Mg Hydroxide 30 ml 10/10/17 16:23 Mylanta Oral Suspension - PO Q6H PRN DYSPEPSIA Eucalyptus/Menthol/Phenol/Sorbitol 1 each 10/10/17 16:23 Cepastat Lozenge - MM Q4H PRN SORE THROAT Guaifenesin 10 ml 10/10/17 16:23 Robitussin Dm - PO Q6H PRN COUGH Hydroxyzine Pamoate 50 mg 10/10/17 16:23 10/10/17 21:37 Vistaril - PO 50 mg Q4H PRN Administration AGITATION Ibuprofen 400 mg 10/10/17 16:23 Motrin - PO Q6H PRN Pain Level 4-6 Lactic Acid 1 applic 10/10/17 22:00 11/05/17 10:22 Lac-Hydrin 12 TP Not Given BID WILNER Loperamide HCl 4 mg 10/10/17 16:23 Imodium - PO Q6H PRN DIARRHEA Magnesium Citrate 300 ml 10/10/17 16:23 Citroma - PO Q48H PRN CONSTIPATION Magnesium Hydroxide 30 ml 10/10/17 16:23 Milk Of Magnesia - PO DAILY PRN CONSTIPATION Mirtazapine 15 mg 10/11/17 22:00 11/04/17 21:31 Remeron - PO 15 mg HS WILNER Administration Multivit/Folic Acid/Iron 1 tab 10/11/17 10:00 11/05/17 10:22 Vitamins (Sjr) - PO 1 tab DAILY WILNER Administration Pseudoephedrine/Triprolidine 1 combo 10/10/17 16:23 Actifed - PO TID PRN NASAL CONGESTION Quetiapine Fumarate 50 mg 11/05/17 14:06 Seroquel - PO HS WILNER Thiamine HCl 100 mg 10/10/17 22:00 11/04/17 21:31 Vitamin B1 - PO 100 mg HS WILNER Administration Triamcinolone Acetonide 1 applic 10/16/17 10:15 11/05/17 10:22 Aristocort 0.025% Ointment - TP 1 applic BID WILNER Administration Medication(s) Change(s): increase seroquel 25 mg po hs. Current Side Effect: No Lab tests ordered: No Lab tests reviewed: Yes Provider note:: Patient continues to c/o insomnia, mood swings, "thinking a lot ", he was started seroquel on 10/30/17, reports still not effective, no side- effects reported, discusssed indications and propreties of his current medications will increase seroquel 50 mg po hs, continue to monitor progress. Total face to face time:: 15 Mental Status Exam - Mental Status Exam Alert and Oriented to: Time, Place, Person Cognitive Function: Good Patient Appearance: Well Groomed Mood: Depressed, Sad, Anxious Affect: Appropriate, Mood Congruent Patient Behavior: Cooperative Speech Pattern: Clear, Appropriate Voice Loudness: Normal Thought Process: Intact, Goal Oriented Thought Disorder: Not Present Hallucinations: Denies Suicidal Ideation: Denies Homicidal Ideation: Denies Insight/Judgement: Fair Sleep: Poorly, Difficulty falling asleep Appetite: Fair Muscle strength/Tone: Normal Gait/Station: Normal Psychiatric Treatment Plan - Problem List (1) Opioid dependence Current Visit: Yes (2) Alcohol dependence Current Visit: Yes (3) Alcohol-induced anxiety disorder Current Visit: Yes (4) Alcohol induced sleep disorders Current Visit: Yes (5) Nicotine dependence Current Visit: No Qualifiers:
[2017-11-05] MEDS: MIRTAZAPINE 15 MG TABLET (FP) PO SCH (21:26)
[2017-11-05] MEDS: THIAMINE HCL 100 MG TABLET (FP) PO SCH (21:26)
[2017-11-05] MEDS: QUEtiapine FUMARATE 50 MG TABLET PO SCH (21:27)
[2017-11-06 06:57] VITALS: PULSE 86
[2017-11-06] MEDS: TRIAMCINOLONE ACET 0.025% OINTMENT 15 GM TUBE TP SCH ×2 (10:18→21:30)
[2017-11-06] MEDS: PRENATAL VITAMINS W/ FOLIC ACID TABLET (FP) PO SCH (10:18)
[2017-11-06] MEDS: AMMONIUM LACTATE 12% LOTION 225 GM BOTTLE TP SCH ×2 (10:18→21:30)
[2017-11-06] MEDS: QUEtiapine FUMARATE 50 MG TABLET PO SCH (21:30)
[2017-11-06] MEDS: MIRTAZAPINE 15 MG TABLET (FP) PO SCH (21:30)
[2017-11-06] MEDS: THIAMINE HCL 100 MG TABLET (FP) PO SCH (21:30)
[2017-11-07 07:02] VITALS: BP 133/83; TEMP 99
--- NOTE | 2017-11-07 10:01 | PN ---
Psychiatric Progress Note Vital Signs: Vital Signs Period Temp Pulse Resp BP Sys/Tran Pulse Ox Last 24 Hr 99.0 F 86 18-18 133/83 Date of Session: 11/07/17 Chief Complaint:: discharge visit HPI: Patient is addressing alcohol, opioid, nicotine dependence comorbid alcohol induced sleep and mood disorder. ROS: wnl Current Medications: Active Medications Generic Name Dose Route Start Last Admin Trade Name Freq PRN Reason Stop Dose Admin Acetaminophen 650 mg 10/10/17 16:23 Tylenol - PO Q4H PRN FEVER Al Hydroxide/Mg Hydroxide 30 ml 10/10/17 16:23 Mylanta Oral Suspension - PO Q6H PRN DYSPEPSIA Eucalyptus/Menthol/Phenol/Sorbitol 1 each 10/10/17 16:23 Cepastat Lozenge - MM Q4H PRN SORE THROAT Guaifenesin 10 ml 10/10/17 16:23 Robitussin Dm - PO Q6H PRN COUGH Hydroxyzine Pamoate 50 mg 10/10/17 16:23 10/10/17 21:37 Vistaril - PO 50 mg Q4H PRN Administration AGITATION Ibuprofen 400 mg 10/10/17 16:23 Motrin - PO Q6H PRN Pain Level 4-6 Lactic Acid 1 applic 10/10/17 22:00 11/06/17 21:30 Lac-Hydrin 12 TP Not Given BID WILNER Loperamide HCl 4 mg 10/10/17 16:23 Imodium - PO Q6H PRN DIARRHEA Magnesium Citrate 300 ml 10/10/17 16:23 Citroma - PO Q48H PRN CONSTIPATION Magnesium Hydroxide 30 ml 10/10/17 16:23 Milk Of Magnesia - PO DAILY PRN CONSTIPATION Mirtazapine 15 mg 10/11/17 22:00 11/06/17 21:30 Remeron - PO 15 mg HS WILNER Administration Multivit/Folic Acid/Iron 1 tab 10/11/17 10:00 11/06/17 10:18 Vitamins (Sjr) - PO 1 tab DAILY WILNER Administration Pseudoephedrine/Triprolidine 1 combo 10/10/17 16:23 Actifed - PO TID PRN NASAL CONGESTION Quetiapine Fumarate 50 mg 11/05/17 22:00 11/06/17 21:30 Seroquel - PO 50 mg HS WILNER Administration Thiamine HCl 100 mg 10/10/17 22:00 11/06/17 21:30 Vitamin B1 - PO 100 mg HS WILNER Administration Triamcinolone Acetonide 1 applic 10/16/17 10:15 11/06/17 21:30 Aristocort 0.025% Ointment - TP Not Given BID WILNER Current Side Effect: No Lab tests ordered: No Lab tests reviewed: Yes Provider note:: Patient has completed today his treatment and met his goals, will continue to address his issues at [facility] long term care social worker treatment program. He reports that he learned a lot from this treatment, ways to cope with the sressors, utilazing all supports available to prevent relapses. Medications Seroquel and Remeron well tolerated, patient responded well to medications management, he less anxious and his sleep improved, scripts provided fro 30 days , stable for d/c. Total face to face time:: 20 Mental Status Exam - Mental Status Exam Alert and Oriented to: Time, Place, Person Cognitive Function: Good Patient Appearance: Well Groomed Mood: Hopeful Affect: Appropriate, Mood Congruent Patient Behavior: Appropriate, Cooperative Speech Pattern: Clear, Appropriate Voice Loudness: Normal Thought Process: Intact, Goal Oriented Thought Disorder: Not Present Hallucinations: Denies Suicidal Ideation: Denies Homicidal Ideation: Denies Insight/Judgement: Fair Sleep: Well Appetite: Good Muscle strength/Tone: Normal Gait/Station: Normal Psychiatric Treatment Plan - Problem List (5) Nicotine dependence Qualifiers:
[2017-11-07] MEDS: PRENATAL VITAMINS W/ FOLIC ACID TABLET (FP) PO SCH (10:04)
[2017-11-07] MEDS: TRIAMCINOLONE ACET 0.025% OINTMENT 15 GM TUBE TP SCH (10:05)
[2017-11-07] MEDS: AMMONIUM LACTATE 12% LOTION 225 GM BOTTLE TP SCH (10:05)
== END 2017-11-07 11:00 | disposition home or self-care (01) | DRG 772 ==
LOC: YASAS 15:16 → Y5N 15:17
PROVIDERS: ADMIT Psychiatry & Neurology Psychiatry; ATTEND Psychiatry & Neurology Psychiatry
PROC: HZ42ZZZ Group Counseling for Substance Abuse Treatment, Cognitive-Behavioral (ICD-10-PCS; principal; 2017-10-10)
DX: F11.20 Opioid dependence, uncomplicated (principal); F10.280 Alcohol dependence with alcohol-induced anxiety disorder; F10.282 Alcohol dependence with alcohol-induced sleep disorder; F17.210 Nicotine dependence, cigarettes, uncomplicated; L98.9 Disorder of the skin and subcutaneous tissue, unspecified